=== PATIENT | female | born 1975 | race Caucasian/White ===

== ENCOUNTER → 2016-11-06 | Outpatient (CLI) | payer BC ==
[~2016-11-06] MED LIST: HYDR-5688 PO; IBUP-1050 PO; METH4PAK4 PO
== END | disposition home or self-care (01) ==
LOC: C.PAPS 12:55
PROVIDERS: ATTEND Obstetrics & Gynecology
DX: Z01.419 Encounter for gynecological examination (general) (routine) without abnormal findings (principal)

== ENCOUNTER → 2017-03-31 | Outpatient (CLI) | payer BC ==
[~2017-03-31] MED LIST changes: -HYDR-5688 PO; -METH4PAK4 PO
[2017-03-31 10:29] LABS: BLOOD UREA NITROGEN 11 mg/dl (7-18); CREATININE 0.81 mg/dl (0.60-1.20); GLUCOSE 95 mg/dl (70-99)
[2017-03-31 10:30] LABS: ALT/SGPT 26 U/L (12-78); CARBON DIOXIDE 26 mmol/L (21-32); CHLORIDE 105 mmol/L (98-107); CHOLESTEROL 138 mg/dl (0-200); POTASSIUM 3.8 mmol/L (3.5-5.1); SODIUM 140 mmol/L (136-145); TRIGLYCERIDES 91 mg/dl (0-150); VERY LOW DENSITY LIPOPROT CALC 18 mg/dl
[2017-03-31 10:35] LABS: CALCIUM 9.4 mg/dl (8.5-10.1)
[2017-03-31 10:40] LABS: ALB/GLOB RATIO 1.2 (0.9-2); ALKALINE PHOSPHATASE 61 U/L (45-117); AST/SGOT 18 U/L (15-37); CHOLESTEROL/HDL RATIO 3.7; HDL CHOLESTEROL 37 mg/dl; LDL CHOLESTEROL CALCULATED 83 mg/dl
[2017-03-31 10:46] LABS: INSULIN FASTING 9.2 mU/L (3-25)
== END | disposition home or self-care (01) ==
LOC: C.LAB1850 09:03
PROVIDERS: ATTEND Internal Medicine Endocrinology, Diabetes & Metabolism
DX: E28.2 Polycystic ovarian syndrome (principal); M79.1 Myalgia

== ENCOUNTER → 2017-10-04 | Outpatient (CLI) | payer BC ==
--- NOTE | 2017-10-05 07:54 | MAMMOGRAPHY REPORT ---
BILATERAL DIGITAL SCREENING MAMMOGRAM TOMOSYNTHESIS WITH CAD: 10/04/2017 CLINICAL HISTORY: Routine screening. Patient has no complaints. TECHNIQUE: Breast tomosynthesis in addition to standard 2D mammography was performed. Current study was also evaluated with a Computer Aided Detection (CAD) system. COMPARISON: Bilateral mammograms performed at the [facility] dated 03/27/2015 and left breast ultrasound from the same date. BREAST COMPOSITION: There are scattered areas of fibroglandular density in both breasts. FINDINGS: There is increased density of the breasts comparing to the prior mammogram performed in , which can be seen with weight loss or hormone therapy. Clinical correlation is recommended. No suspicious mass, architectural distortion or cluster of suspicious microcalcifications is seen. IMPRESSION: ACR BI-RADS CATEGORY 1: NEGATIVE 1. There is no mammographic evidence of malignancy. A 1 year screening mammogram is recommended. 2. Increased density of the breasts, which can be seen with hormone therapy or weight loss. Clinica l correlation is recommended. The patient will receive written notification of the results. Approximately 10% of breast cancers are not detected with mammography. A negative mammographic report should not delay biopsy if a clinically suggestive mass is present. Odette Carrillo M.D. ay/:10/04/2017 17:04:01 Laborer Rags: Demi GARCIA)(M), [facility] letter sent: Normal 1/2 BI-RADS Code: ACR BI-RADS Category 1: Negative
== END | disposition home or self-care (01) ==
LOC: C.MAMM 13:40
PROVIDERS: ATTEND Nurse Practitioner Family
DX: Z12.31 Encounter for screening mammogram for malignant neoplasm of breast (principal)

== ENCOUNTER → 2017-12-29 | Outpatient (CLI) | payer BC ==
[2017-12-29 17:12] LABS: BLOOD UREA NITROGEN 20 mg/dl (7-18); CALCIUM 9.3 mg/dl (8.5-10.1); CARBON DIOXIDE 28 mmol/L (21-32); CREATININE 0.66 mg/dl (0.60-1.20); GLUCOSE 61 mg/dl (70-99); POTASSIUM 4.2 mmol/L (3.5-5.1); SODIUM 136 mmol/L (136-145)
== END | disposition home or self-care (01) ==
LOC: C.LAB1850 15:03
PROVIDERS: ATTEND Internal Medicine Endocrinology, Diabetes & Metabolism
DX: E28.2 Polycystic ovarian syndrome (principal)